=== PATIENT | female | born 1995 | race Caucasian/White ===

== ENCOUNTER 2018-11-17 19:53 | Emergency (ER) | payer OTHER ==
[2018-11-17] MEDS: DIPHENHYDRAMINE 25 MG CAP PO (21:45)
[2018-11-17] MEDS: DEXAMETHASONE 4 MG TAB PO (21:45)
== END 2018-11-17 21:55 | disposition home or self-care (01) ==
LOC: FTE 19:53
DX: S80.861A Insect bite (nonvenomous), right lower leg, initial encounter (principal); S80.862A Insect bite (nonvenomous), left lower leg, initial encounter; W57.XXXA Bitten or stung by nonvenomous insect and other nonvenomous arthropods, initial encounter
CPT/HCPCS: 99283; Z7502